=== PATIENT | female | born 1950 | race Caucasian/White ===

== ENCOUNTER → 2018-10-21 | Outpatient (CLI) | payer MEDICARE, MEDICAID ==
[~2018-10-21] MED LIST: AMLODIPINE BESY10 MG PO; APAP500 PO; AZITHROMYCIN 2250 MG PO; BACTROBAN CREAM30 G1 TOP; BACTROBAN15 GM; CARAFATE 1 GM TA1 G1 PO; CELEBREX50 MG PO; CHOLEST CARE500 MG; COLACE100 MG PO; CYMBALTA20 MG PO; CYMBALTA60 MG PO; DESYREL150 MG PO; DIAZEPAM 5 MG5 MG PO; DIAZEPAM1 EAC1; FLUOXETINE HCL20 M1 PO; HYDROCODON-ACE1 EAC5 PO; HYDROCODON-ACE1 EAC7 PO; IRON325 PO; LISINOPRIL-HCT1 EACH PO; LISINOPRIL2.5 MG PO; MAGOX 400400 MG PO; METHOTREXATE 22.5 MG PO; MINOCIN50 MG PO; NEURONTIN600 MG PO; NORCO 5-325 TA1 EACH PO; ONDANSETRON HCL4 M2 PO; PHENERGAN12.5 M2 RECTAL; PLAQUENIL200 MG PO; PREMARIN0.3 MG PO; PROTONIX40 M1 PO; REQUIP 0.25 M0.25 M1 PO; ZOFRAN4 MG PO
== END ==
LOC: M.PC 11:30
DX: M47.26 Other spondylosis with radiculopathy, lumbar region (principal); M51.16 Intervertebral disc disorders with radiculopathy, lumbar region; M47.812 Spondylosis without myelopathy or radiculopathy, cervical region; M50.30 Other cervical disc degeneration, unspecified cervical region; M17.0 Bilateral primary osteoarthritis of knee; M32.9 Systemic lupus erythematosus, unspecified; F17.200 Nicotine dependence, unspecified, uncomplicated; Z79.899 Other long term (current) drug therapy; Z90.710 Acquired absence of both cervix and uterus

== ENCOUNTER → 2018-10-23 | Outpatient (CLI) | payer MEDICARE, MEDICAID | END | disposition home or self-care (01) | LOC: M.PC 05:31 | DX: M17.12 Unilateral primary osteoarthritis, left knee (principal); G89.29 Other chronic pain; M51.16 Intervertebral disc disorders with radiculopathy, lumbar region; M47.26 Other spondylosis with radiculopathy, lumbar region; M50.10 Cervical disc disorder with radiculopathy, unspecified cervical region; M47.22 Other spondylosis with radiculopathy, cervical region; I10 Essential (primary) hypertension; M79.7 Fibromyalgia; F17.210 Nicotine dependence, cigarettes, uncomplicated; F41.9 Anxiety disorder, unspecified; F32.9 Major depressive disorder, single episode, unspecified; Z87.19 Personal history of other diseases of the digestive system; Z90.710 Acquired absence of both cervix and uterus; Z98.890 Other specified postprocedural states; Z79.899 Other long term (current) drug therapy ==

== ENCOUNTER → 2018-10-30 | Outpatient (CLI) | payer MEDICARE, MEDICAID | LOC: M.PC 05:16 | DX: M17.12 Unilateral primary osteoarthritis, left knee (principal); Z79.899 Other long term (current) drug therapy; Z98.890 Other specified postprocedural states ==